=== PATIENT | female | born 1970 ===

== ENCOUNTER 2022-03-24 09:35 | Outpatient (REF) | payer MEDICAID, SELFPAY ==
[2022-03-24 14:18] LABS: Amphetamine Screen Urine Not Detected (Not Detect); Barbiturates, Urine Not Detected (Not Detect); Benzodiazepines Screen Urine Not Detected (Not Detect); Cannabinoid Screen Urine POSITIVE (Not Detect); Cocaine Screen Urine Not Detected (Not Detect); Fentanyl, urine Not Detected (Not Detect); Opiate Screen Urine Not Detected (Not Detect); Phencyclidine Screen Urine Not Detected (Not Detect)
== END 2022-03-24 09:36 | disposition home or self-care (01) ==
LOC: HO.LNP 09:35
PROVIDERS: Visit Provider Nurse Practitioner Psychiatric/Mental Health
DX: F12.20 Cannabis dependence, uncomplicated (principal)
CPT/HCPCS: 80307

== ENCOUNTER 2022-03-25 08:25 | Outpatient (REF) | payer MEDICAID, SELFPAY ==
[2022-03-25 08:48] LABS: MANUAL DIFF FLAG NO
[2022-03-25 09:09] LABS: Basophils Absolute Auto 0.1 X10*3/uL (0.0-0.2); Basophils Percent Auto 0.6 % (0-2); Eosinophils Absolute Auto 0.3 X10*3/uL (0.0-0.4); Eosinophils Percent Auto 2.1 % (0-4); Hematocrit 41.1 % (37.0-47.0); Hemoglobin 13.4 g/dl (12.0-16.0); Imm Gran Abs Auto 0.07 X10*3/uL (0.00-0.03); Imm Gran Pct Auto 0.5 % (0.0-0.4); Lymphocytes Absolute Auto 2.6 X10*3/uL (1.2-4.9); Lymphocytes Percent Auto 17.2 % (20-40); Mean Corpuscular HGB Conc 32.6 g/dl (31.0-35.0); Mean Corpuscular Hemoglobin 30.7 pg (27.0-33.0); Mean Corpuscular Volume 94.1 fL (80.0-98.0); Mean Platelet Volume 9.3 fL (9.4-12.3); Monocytes Absolute Auto 0.7 X10*3/uL (0.1-1.2); Monocytes Percent Auto 4.6 % (2-11); Neutrophils Absolute Auto 11.2 x10*3/uL (2.0-8.3); Platelet Count 439 X10*3/uL (160-400); Red Blood Count 4.37 X10*6/uL (4.20-5.50); Red Cell Distribution Width 13.4 % (11.0-16.0); White Blood Count 14.9 X10*3/uL (4.8-10.8)
[2022-03-25 09:25] LABS: Lithium 0.97 mmol/L (0.60-1.20)
[2022-03-25 09:33] LABS: Alanine Aminotransferase 18 U/L (0-31); Albumin Level 4.3 g/dL (3.5-5.0); Alkaline Phosphatase 111 U/L (39-117); Anion Gap 14 (12-20); Aspartate Amino Transferase 17 U/L (5-31); Bilirubin Total 0.4 mg/dL (0.0-1.0); Blood Urea Nitrogen 21 mg/dL (9-16); Carbon Dioxide 22 mmol/L (22-29); Chloride 107 mmol/L (96-108); Estimated Glomerular Filt Rate 50; Glucose Random 161 mg/dL (60-115); Potassium 3.9 mmol/L (3.3-5.1); Sodium 139 mmol/L (135-145); Total Protein 7.2 g/dL (6.5-8.0)
[2022-03-25 09:56] LABS: Free T4 (Free Thyroxine) 1.11 ng/dL (0.71-1.85); Thyroid Stimulating Hormone 2.99 uIU/mL (0.32-4.0)
[2022-03-25 10:56] LABS: Amphetamine Screen Urine Not Detected (Not Detect); Barbiturates, Urine Not Detected (Not Detect); Benzodiazepines Screen Urine Not Detected (Not Detect); Cannabinoid Screen Urine Not Detected (Not Detect); Cocaine Screen Urine Not Detected (Not Detect); Fentanyl, urine Not Detected (Not Detect); Opiate Screen Urine Not Detected (Not Detect); Phencyclidine Screen Urine Not Detected (Not Detect)
== END 2022-03-25 08:26 | disposition home or self-care (01) ==
LOC: HO.LAB 08:25
PROVIDERS: Visit Provider Nurse Practitioner Psychiatric/Mental Health
DX: F31.32 Bipolar disorder, current episode depressed, moderate (principal); Z79.899 Other long term (current) drug therapy
CPT/HCPCS: 80053; 80178; 80307; 84439; 84443; 85025

== ENCOUNTER 2022-04-06 08:45 | Outpatient (RCR) | payer OTHER, SELFPAY ==
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
[2022-03-24 11:02] VITALS: BMI 36.4
--- NOTE | 2022-03-24 14:40 | PC.ADMIT ---
Patient is a 51 year old female who was referred to [facility] by her primary care doctor d/t mood instability. Patient has a dx of bipolar d/o and reported that she was in a manic state for two and a half months. Patient stated she was not able to get a hold of her psychiatrist at the time she was manic. She reports she lost her job d/t unstable mood. In addition patient reports she was not taking medications as prescribed, missing doses. Patient reports when she is manic she feels she can do anything. Patient reports she spoke with her PCP and he consulted with a mental health psychiatrist thus he prescribed her medication. Patient reports she is now taking her medications as prescribed however she does report missing doses once a week. Reports she ordered a pill organizer and plans on using this to help her remember to take her medications. Patient reports she is currently feeling depressed with some passive SI,she denied plan or intent to harm or kill herself. Patient presents with depressed mood and anxious affect. Speech somewhat pressured. She is alert and oriented x4. Medications reconciled with patient, patient's pharmacy, and Manager Drug Safety office.
[2022-03-24 15:18] VITALS: BP 130/80; PULSE 80; TEMP 37.3
--- NOTE | 2022-03-29 09:41 | P.PNPSP_ITS ---
Subjective Subjective Date of Service: 03/29/22 Reason For Visit: bipolar Medical Problems Affecting Mental Status: No Interim History: Patient reports increased depression. No manic/hypomanic symptoms. Has had thoughts of SI with plan, no intent. Reports that she feels safe. Reports she has been sleeping more, eating more. Wants to stop taking olanzapine due to anxiety regarding weight gain. Experiencing physical pain, difficulty walking, back pain. Medication Compliance: Yes Side effects from medications: Yes (Weight gain) Attending Groups: Yes Review of Systems Acute medical concerns: No Medical Review of Systems: unchanged Review of Systems Review of Systems Yes all other systems are reviewed and are negative Constitutional: Reports no additional constitutional complaints Mental Status Exam Mental Status Exam Narrative: NAD. Ambulation slow but steady. No involuntary movements, motor activity calm. Patient Appearance: Well Grooomed and Appropriate Patient Orientation: Person, Place, Time and Situation Level of Consciousness: Appropriate Patient Behavior: Appropriate and Cooperative Mood Description: Depressed and Anxious Affect Description: Depressed and Anxious Patient Cognition Impaired: No Ability to Follow Directions: Good Speech Pattern: Clear, Appropriate and Coherent Memory Description: Intact Hallucinations: None Delusions: Not Present Thought Process: Intact Thought Content: positive for Intact and positive for Suicidal Ideation (Passive, no intent.) Depressive Symptoms: Increased Anxiety, Changes in Appetite (Eating more), Sleep ing More Than Usual, Loss of Int. in Activity, Increased Fatigue, Thoughts of /Suicide and Loss of Energy Judgement: Fair Diagnostics Vital Signs (24Hr): BMI result Body Mass Index 36.4 Assessment & Plan Assessment & Plan (1) Bipolar I disorder, most recent episode depressed, moderate: Status: Acute Code(s): F31.32 - Bipolar disorder, current episode depressed, moderate Assessment and Plan: Patient reports increased depression. No manic/hypomanic symptoms. States she believes this is in part due to topics in groups, bringing up emotions and memor ies. Has had thoughts of SI with plan, no intent. Reports that she feels safe. Reports she has been sleeping more, eating more. Wants to stop taking olanzapine due to anxiety regarding weight gain. Reports this medication had been added recently due to feeling manic, no longer manic. Expressed anxiety and concern regarding weight gain, wishes to stop the olanzapine. Experiencing physical pain, difficulty walking, back pain. States her goal is to stop taking olanzapine, and switch to another mood stabilizer once she is working with an outpatient psychiatric provider. States she wants this change due to option of being able to take anti-inflammatories, which can interact with lithium. (2) Generalized anxiety disorder: Status: Acute Code(s): F41.1 - Generalized anxiety disorder Plan 1. Continue with current [facility] plan of care. 2. Discontinue olanzapine. 3. Follow-up as per protocol. Patient educated on: diagnosis, medication risk/benefits and therapeutic strategies Informed Consent: understands Reason for contiued partial hosp. stay Substantial Risk for: harm to self, inability to function, rapid decompensation and med/psych decompensation Certification I certify that partial hospital treatment is medically necessary due to the symptoms and problems resulting from the patient's mental illness and the failure to treat the patient at the partial hospital level of care would likely result in the patient requiring inpatient psychiatric care which could not be prevented at a less intensive level of care. I spent minutes with the patient and/or on the patient floor today, greater than?50% of which was spent counseling/coordinating care. Discharge Plan Discharge Attending provider: Edwar Hall Medications: Discontinued olanzapine 2.5 mg Tablet 2.5 mg PO BEDTIME Label Comments: Laura Alarcon [facility] prescriber told patient to lower dose from 5 mg to 2.5 mg at HS. No Action clonazepam [Klonopin] 0.5 mg Tablet 0.5 mg PO BID PRN (Reason: Anxiety) fexofenadine [Cortney] 180 mg Tablet 180 mg PO DAILY lithium carbonate 450 mg Tablet Extended Release 450 mg PO BEDTIME Label Comments: Patient reports she takes lithium 450 mg at HS along with 300 mg tab at HS. levothyroxine 100 mcg Tablet 100 mcg PO DAILY pantoprazole 40 mg Tablet,Delayed Release (Dr/Ec) 40 mg PO DAILY albuterol sulfate [ProAir HFA] 90 mcg/actuation Hfa Aerosol Inhaler 2 puff INHALATION BID PRN (Reason: Shortness Of Breath) lithium carbonate 300 mg Tablet 300 mg PO BEDTIME Label Comments: Patient stated she takes 2-450 mg tabs and 1-300 mg tab at HS. Patient has been missing doses of her medications however patient reports she is taking her medications currently everyday however forgets to take them at least once a week. Laura Pandey [facility] is aware. Rx Instructions: Last filled 10/18/21 for 3 month supply. lamotrigine 100 mg Tablet 300 mg PO BEDTIME irbesartan 300 mg Tablet 150 mg PO DAILY Label Comments: Confirmed med with Dr Hoskins's office her Employee Benefits Manager and PCP's office and per patient. Patient stated she was told to take 150 mg daily. Patient has an appointment with her Employee Benefits Manager at end of the month. Rx Instructions: Patient takes 1/2 tab daily. gabapentin 300 mg Tablet 300 mg PO TID hydrochlorothiazide 12.5 mg Tablet 12.5 mg PO DAILY
--- NOTE | 2022-04-05 13:23 | PC.NURSE ---
In response to pt's concerns about finances, I called the [place] PFML line for questions about benefits and eligibility. I was informed that someone can be out of work and still get PFML benefits, as long as they are out of work for 26 weeks or less. Pt would have to go to the [email or web address] and apply, and then have an MD fill out a serious health condition form. Pt has currently been laid off from work due to her symptoms, and is applying for disability, so is not eligible for unemployment (despite her ability to work a few hours per week). I met with her and gave her this info, and she was interested and said she will follow through.
--- NOTE | 2022-04-06 11:18 | P.PNPSP_ITS ---
Subjective Subjective Date of Service: 04/06/22 Reason For Visit: bipolar Medical Problems Affecting Mental Status: No Interim History: Reports feeling at baseline regarding bipolar symptoms. States slightly hypomanic, but that this is normal for her. No SI/HI, no safety concerns. No issues after stopping olanzapine last week. Continues with all other medications as prescribed. A feels stable, ready for discharge from [facility]. Medication Compliance: Yes Side effects from medications: No Attending Groups: Yes Review of Systems Acute medical concerns: No Medical Review of Systems: unchanged Review of Systems Review of Systems Yes all other systems are reviewed and are negative Constitutional: Reports no additional constitutional complaints Mental Status Exam Mental Status Exam Narrative: NAD. Ambulation slow but steady. No involuntary movements, motor activity calm. Patient Appearance: Well Grooomed and Appropriate Patient Orientation: Person, Place, Time and Situation Level of Consciousness: Appropriate Patient Behavior: Appropriate and Cooperative Mood Description: Appropriate Affect Description: Appropriate Patient Cognition Impaired: No Ability to Follow Directions: Excellent Speech Pattern: Clear, Appropriate and Coherent Memory Description: Intact Hallucinations: None Delusions: Not Present Thought Process: Intact Thought Content: positive for Intact Judgement: Good Diagnostics Vital Signs (24Hr): BMI result Body Mass Index 36.4 Assessment & Plan Assessment & Plan (1) Bipolar I disorder, most recent episode depressed, moderate: Status: Acute Code(s): F31.32 - Bipolar disorder, current episode depressed, moderate Assessment and Plan: Patient feels stable, no SI, reports feeling safe, no concerns. Feels current medication regimen is working well. Feels stable for discharge from [facility] at this time. (2) Generalized anxiety disorder: Status: Acute Code(s): F41.1 - Generalized anxiety disorder Plan 1. Patient appears stable for discharge from [facility] at this time. 2. Patient will follow up with outpatient providers going forward. Patient educated on: diagnosis, medication risk/benefits and therapeutic strategies Informed Consent: understands Reason for contiued partial hosp. stay Substantial Risk for: stable for discharge Certification I certify that partial hospital treatment is medically necessary due to the symptoms and problems resulting from the patient's mental illness and the failure to treat the patient at the partial hospital level of care would likely result in the patient requiring inpatient psychiatric care which could not be prevented at a less intensive level of care. I spent minutes with the patient and/or on the patient floor today, greater than?50% of which was spent counseling/coordinating care. Discharge Plan Discharge Attending provider: Edwar Hall Medications: Discontinued olanzapine 2.5 mg Tablet 2.5 mg PO BEDTIME Label Comments: Laura Alarcon [facility] prescriber told patient to lower dose from 5 mg to 2.5 mg at HS. No Action clonazepam [Klonopin] 0.5 mg Tablet 0.5 mg PO BID PRN (Reason: Anxiety) fexofenadine [Cortney] 180 mg Tablet 180 mg PO DAILY lithium carbonate 450 mg Tablet Extended Release 450 mg PO BEDTIME Label Comments: Patient reports she takes lithium 450 mg at HS along with 300 mg tab at HS. levothyroxine 100 mcg Tablet 100 mcg PO DAILY pantoprazole 40 mg Tablet,Delayed Release (Dr/Ec) 40 mg PO DAILY albuterol sulfate [ProAir HFA] 90 mcg/actuation Hfa Aerosol Inhaler 2 puff INHALATION BID PRN (Reason: Shortness Of Breath) lithium carbonate 300 mg Tablet 300 mg PO BEDTIME Label Comments: Patient stated she takes 2-450 mg tabs and 1-300 mg tab at HS. Patient has been missing doses of her medications however patient reports she is taking her medications currently everyday however forgets to take them at least once a week. Laura Pandey [facility] is aware. Rx Instructions: Last filled 10/18/21 for 3 month supply. lamotrigine 100 mg Tablet 300 mg PO BEDTIME irbesartan 300 mg Tablet 150 mg PO DAILY Label Comments: Confirmed med with Dr Hoskins's office her Business Services Sales Representative and PCP's office and per patient. Patient stated she was told to take 150 mg daily. Patient has an appointment with her Business Services Sales Representative at end of the month. Rx Instructions: Patient takes 1/2 tab daily. gabapentin 300 mg Tablet 300 mg PO TID hydrochlorothiazide 12.5 mg Tablet 12.5 mg PO DAILY Stand Alone Forms: Patient Portal Discharge page
--- NOTE | 2022-04-06 12:41 | PC.NURSE ---
Patient scheduled for routine discharge today. She denied SI or thoughts to harm herself. Feeling more stable. Reviewed patient medications with patient. Patient stated she is taking 2- 450 mg tabs of [place] in addition to 300 mg at HS. Patient reports taking medications as prescribed. Called patient's PCP's office of DARVIN Guerra to confirm that they received patient's lab results done at [facility] via fax and if Jerry needed to f/u with the patient based on the results. Shu MADISON left me a message stating that they received the results and they are all set.
--- NOTE | 2022-04-06 14:55 | PC.NURSE ---
I called and left a message for Margie Bradley, pt's therapist at [facility] ([phone]) informing her of pt's clinical presentation and discharge from [facility] today.
== END 2022-04-06 23:59 | disposition home or self-care (01) ==
LOC: HO.PHPA 08:45
PROVIDERS: Visit Provider Psychiatry & Neurology Psychiatry
DX: F31.32 Bipolar disorder, current episode depressed, moderate (principal); F41.1 Generalized anxiety disorder; Z79.899 Other long term (current) drug therapy
CPT/HCPCS: 90791; 90853